=== PATIENT | male | born 1965 | race Caucasian/White ===

== ENCOUNTER 2024-11-25 12:52 | Emergency (ER) | payer SELFPAY ==
[~2024-11-25] VITALS: Ht 172.7 cm; Wt 88.0 kg
[2024-11-25 13:01] VITALS: O2SAT 97
[2024-11-25 13:10] VITALS: BP 147/94; PULSE 110; RESP 18; TEMP 36.7; O2SAT 97
== END 2024-11-25 14:05 | disposition left against medical advice (07) ==
LOC: ER 12:52
DX: M79.641 Pain in right hand (principal); R07.89 Other chest pain; R51.9 Headache, unspecified
CPT/HCPCS: 99281